=== PATIENT | male | born 1960 | race African-American/Black ===

== ENCOUNTER 2019-06-09 02:31 | Emergency (ER) | payer MEDICAID ==
[~2019-06-09] VITALS: Ht 190.5 cm; Wt 81.8 kg
[2019-06-09 02:38] VITALS: Ht 190.5 cm; Wt 81.8 kg
[2019-06-09] MEDS ORDERED: COREG12.5 MG PO (02:39)
[2019-06-09] MEDS ORDERED: ENTRESTO 97 MG1 EACH PO (02:40)
[2019-06-09] MEDS ORDERED: JANTOVEN3 MG PO (02:40)
[2019-06-09] MEDS ORDERED: VITAMIN B-121000 MCG PO (02:41)
[2019-06-09 03:07] LABS: BASOPHILS 0.6 % (0-2); EOSINOPHILS 5.4 % (0-7); HEMATOCRIT 35.1 % (42.0-54.0); HEMOGLOBIN 11.4 g/dL (13.5-17.5); IMMATURE GRANULOCYTES 0.2 % (0-5); LYMPHOCYTES 29.7 % (15-50); MCH 32.7 pg (26.0-34.0); MCHC 32.5 g/dL (31.0-37.0); MCV 100.6 fL (80.0-100.0); MEAN PLATELET VOLUME 10.9 fL (7.4-10.4); MONOCYTES 5.1 % (2-11); PLATELET COUNT 197 10x3/uL (130-400); RBC 3.49 10x6/uL (4.20-6.10); RDW 16.4 % (11.5-14.5); WBC 6.5 10x3/uL (4.8-10.8)
[2019-06-09 03:21] LABS: ALBUMIN 3.3 g/dL (3.4-5.0); ANION GAP 12.4 mmol/L (8-16); APTT 64.7 SECONDS (22.8-39.4); BILIRUBIN - TOTAL 0.26 mg/dL (0.2-1.3); CALCIUM 7.7 mg/dL (8.5-10.1); CARBON DIOXIDE 25.4 mmol/L (21.0-32.0); CREATININE - SERUM 1.6 mg/dL (0.6-1.3); INR 3.98 (0.85-1.17); POTASSIUM - SERUM 4.8 mmol/L (3.5-5.1); PROTEIN - SERUM 7.8 g/dL (6.4-8.2)
[2019-06-09] MEDS ORDERED: CYCLOBENZAPRINE10 MG PO (03:55)
[2019-06-09] MEDS ORDERED: ULTRAM50 MG PO (03:55)
[2019-06-09 04:17] VITALS: BP 124/78
== END 2019-06-09 04:10 | disposition home or self-care (01) ==
LOC: D.ER 02:31
PROVIDERS: Family Medicine
DX: S16.1XXA Strain of muscle, fascia and tendon at neck level, initial encounter (principal); V89.2XXA Person injured in unspecified motor-vehicle accident, traffic, initial encounter; S39.012A Strain of muscle, fascia and tendon of lower back, initial encounter; S09.90XA Unspecified injury of head, initial encounter